=== PATIENT | male | born 1985 | race American Indian/Alaskan Native ===

== ENCOUNTER 2018-09-05 15:45 | Emergency (ER) | payer OTHER ==
--- NOTE | 2018-09-05 20:13 | Emergency Department Report ---
- General Chief complaint: Abdominal Pain Stated complaint: RT LEG PAIN Time Seen by Provider: 09/05/18 19:31 Source: patient Mode of arrival: Ambulatory Limitations: No Limitations - History of Present Illness Initial comments: abscess thigh x 3 days pt denies fever or chills no n/v has hx of abscess thigh 1 yr ago. there are no relieving or exacerbating factors. MD complaint: abscess/boil (1x1 left inner thigh) Onset/Timin -: days(s) Tetanus Up to Date: yes Location: LLE Severity: moderate Severity scale (0 -10): 4 Quality: burning, other (itching ) Consistency: constant Improves with: none Worsens with: none Context: none Associated symptoms: itching Treatments Prior to Arrival: none - Related Data Previous Rx's Medication Instructions Recorded Last Taken Type Cephalexin [Keflex] 500 mg PO TID #30 capsule 09/05/18 Unknown Rx Tramadol HCl [Ultram] 50 mg PO Q6H PRN #12 tablet 09/05/18 Unknown Rx Allergies Allergy/AdvReac Type Severity Reaction Status Date / Time Sulfa (Sulfonamide Allergy Unknown Verified 09/05/18 16:11 Antibiotics) Abscess Boil HPI - HPI Chief Complaint: Abdominal Pain Stated Complaint: RT LEG PAIN Time Seen by Provider: 09/05/18 19:31 Home Medications: Previous Rx's Medication Instructions Recorded Last Taken Type Cephalexin [Keflex] 500 mg PO TID #30 capsule 09/05/18 Unknown Rx Tramadol HCl [Ultram] 50 mg PO Q6H PRN #12 tablet 09/05/18 Unknown Rx Allergies/Adverse Reactions: Allergies Allergy/AdvReac Type Severity Reaction Status Date / Time Sulfa (Sulfonamide Allergy Unknown Verified 09/05/18 16:11 Antibiotics) ED Review of Systems ROS: Stated complaint: RT LEG PAIN Other details as noted in HPI Constitutional: denies: chills, fever Eyes: denies: eye pain, eye discharge, vision change ENT: denies: ear pain, throat pain Respiratory: denies: cough, shortness of breath, wheezing Cardiovascular: as per HPI Endocrine: no symptoms reported Gastrointestinal: denies: abdominal pain, nausea, diarrhea Genitourinary: denies: urgency, dysuria Musculoskeletal: other (abscess LLE ) Skin: lesions Neurological: denies: headache, weakness, paresthesias Psychiatric: denies: anxiety, depression Hematological/Lymphatic: denies: easy bleeding, easy bruising ED Past Medical Hx - Past Medical History Previous Medical History?: Yes Hx Diabetes: Yes - Surgical History Past Surgical History?: No - Social History Smoking Status: Never Smoker Substance Use Type: None - Medications Home Medications: Home Medications Medication Instructions Recorded Confirmed Last Taken Type Cephalexin [Keflex] 500 mg PO TID #30 capsule 09/05/18 Unknown Rx Tramadol HCl [Ultram] 50 mg PO Q6H PRN #12 tablet 09/05/18 Unknown Rx ED Physical Exam - General Limitations: No Limitations General appearance: alert, in no apparent distress - Head Head exam: Present: atraumatic, normocephalic - Eye Eye exam: Present: normal appearance - ENT ENT exam: Present: mucous membranes moist - Neck Neck exam: Present: normal inspection - Respiratory Respiratory exam: Present: normal lung sounds bilaterally. Absent: respiratory distress - Cardiovascular Cardiovascular Exam: Present: regular rate, normal rhythm. Absent: systolic murmur, diastolic murmur, rubs, gallop - GI/Abdominal GI/Abdominal exam: Present: soft, normal bowel sounds - Rectal Rectal exam: Present: deferred - Extremities Exam Extremities exam: Present: full ROM, tenderness (LLE thigh abscess ), normal capillary refill. Absent: pedal edema, joint swelling, calf tenderness - Back Exam Back exam: Present: normal inspection, full ROM. Absent: tenderness, CVA tenderness (R), CVA tenderness (L) - Neurological Exam Neurological exam: Present: alert, oriented X3, CN II-XII intact, normal gait, reflexes normal - Psychiatric Psychiatric exam: Present: normal affect, normal mood - Skin Skin exam: Present: warm, dry, intact, normal color, erythema (abscess left inner thigh ). Absent: rash ED Course Vital Signs 09/05/18 16:08 Temperature 98.3 F Pulse Rate 82 Respiratory 16 Rate Blood Pressure 171/101 O2 Sat by Pulse 100 Oximetry - I & D Left Thigh Type of Procedure: Simple Site: left inner thigh abscess Blade Size: 11 I & D Procedure: betadine prep, sterile dressing applied Progress: left inner thigh abcess 1x1 mild erythema fluctuant, painful to touch, wound cleaned with betadine solution, anesthesia with 1% lidocaine plain, incision with 11 blade x 1 moderate purulent drainage, wound irrigated wtih 30 sterile saline, all bleeding controlled sterile dressing applied pt tolerated procedure with minimal distress, pt given wound care instructions will follow up with pcp in 2 xdays for wound dc to home wtih rx for keflex and ultram. Critical care attestation.: If time is entered above; I have spent that time in minutes in the direct care of this critically ill patient, excluding procedure time. ED Disposition Clinical Impression: Abscess Disposition: DC-01 TO HOME OR SELFCARE Is pt being admited?: No Does the pt Need Aspirin: No Condition: Stable Instructions: Abscess (ED) Prescriptions: Cephalexin [Keflex] 500 mg PO TID #30 capsule Tramadol HCl [Ultram] 50 mg PO Q6H PRN #12 tablet PRN Reason: pain Referrals: MARA MOHAMUD MD [Primary Care Provider] - 3-5 Days Forms: Work/School Release Form(ED) Time of Disposition: 20:13
[2018-09-05 20:22] VITALS: BP 171/94
--- NOTE | 2019-01-06 11:29 | Event Note ---
Date: 01/06/19 Noted positive blood culture with MSSA during Antimicrobial Stewardship Blood Culture review. Patient discharged home. I called and spoke to the patient. He is currently feeling well. MSSA bacteremia is almost never considered a contaminant and if untreated, can be associated with a high mortality given the highly invasive nature of the infection. Hence, recommended patient return to the hospital for evaluation. He is agreeable. Recs: - upon arrival to the ER, please obtain blood cultures x 2, TTE and then start p atient on IV Cefazolin. Recommend ID consult Please call me with questions. Klarissa Blancas MD Infectious Disease Assistant [facility] C: [phone]
== END 2018-09-05 20:21 | disposition home or self-care (01) ==
LOC: ED 15:45
DX: L02.416 Cutaneous abscess of left lower limb (principal); E11.9 Type 2 diabetes mellitus without complications; Z88.2 Allergy status to sulfonamides

== ENCOUNTER 2018-12-28 22:08 | Inpatient (IN) | payer OTHER ==
--- NOTE | 2018-12-28 22:33 | Emergency Department Report ---
Blank Doc - Documentation Documentation: This is a 33-year-old male that presents with dizziness and generalized weakne ss. Denies any chest pain. This initial assessment/diagnostic orders/clinical plan/treatment(s) is/are subject to change based on patient's health status, clinical progression and re- assessment by fellow clinical providers in the ED. Further treatment and workup at subsequent clinical providers discretion. Patient/guardians urged not to elope from the ED as their condition may be serious if not clinically assessed and managed. Initial orders include: 1- Patient sent to [facility] for further evaluation and treatment 2- labs
[2018-12-28 23:03] LABS: Basophils % (Auto) 0.1 % (0.0-1.8); Eosinophils % (Auto) 0.2 % (0.0-4.3); Hematocrit 31.7 % (35.5-45.6); Hemoglobin 10.5 gm/dl (11.8-15.2); Lymphocytes # (Auto) 0.8 K/mm3 (1.2-5.4); Lymphocytes % (Auto) 6.6 % (13.4-35.0); Mean Corpuscular HGB Conc 33 % (32-34); Mean Corpuscular Volume 84 fl (84-94); Monocytes # (Auto) 0.7 K/mm3 (0.0-0.8); Monocytes % (Auto) 5.7 % (0.0-7.3); Platelet Count 395 K/mm3 (140-440); Red Blood Count 3.77 M/mm3 (3.65-5.03); Red Cell Distribution Width 13.2 % (13.2-15.2)
[2018-12-28 23:06] LABS: Calcium 8.3 mg/dL (8.4-10.2)
[2018-12-29] MEDS ORDERED: ZOFRAN IV ONE (00:22)
[2018-12-29] MEDS ORDERED: NACL 0.9% 1000 ML 1,000 ML IV ONE ×2 (00:22→02:02)
--- NOTE | 2018-12-29 00:43 | Emergency Department Report ---
ED General Adult HPI - General Chief complaint: Dyspnea/Respdistress Stated complaint: SOB DIZZINESS WEAKNESS NECKPAIN Time Seen by Provider: 12/28/18 22:32 Source: patient, family Mode of arrival: Wheelchair Limitations: No Limitations - History of Present Illness Initial comments: This is a 33-year-old male with hx of IDDM , who presents with dizziness and generalized weakness. x 1 week Denies any chest pain. pt states adherence to medications however does not have a doctor. Onset/Timin -: week(s) Location: abdomen Radiation: back Severity scale (0 -10): 4 Quality: aching Consistency: constant Improves with: none Worsens with: none Associated Symptoms: malaise, shortness of breath, weakness Treatments Prior to Arrival: none - Related Data Previous Rx's Medication Instructions Recorded Last Taken Type Cephalexin [Keflex] 500 mg PO TID #30 capsule 09/05/18 Unknown Rx Tramadol HCl [Ultram] 50 mg PO Q6H PRN #12 tablet 09/05/18 Unknown Rx Allergies Allergy/AdvReac Type Severity Reaction Status Date / Time Sulfa (Sulfonamide Allergy Unknown Verified 09/05/18 16:11 Antibiotics) ED Review of Systems ROS: Stated complaint: SOB DIZZINESS WEAKNESS NECKPAIN Other details as noted in HPI Constitutional: malaise Eyes: denies: eye pain, eye discharge, vision change ENT: denies: ear pain, throat pain Respiratory: shortness of breath Cardiovascular: denies: chest pain, palpitations Endocrine: no symptoms reported Gastrointestinal: abdominal pain. denies: nausea, vomiting, diarrhea, constipation, melena Genitourinary: denies: urgency, dysuria, frequency, hematuria, discharge Musculoskeletal: back pain. denies: joint swelling, arthralgia Skin: denies: rash, lesions Neurological: weakness. denies: headache, paresthesias, vertigo Psychiatric: denies: anxiety, depression Hematological/Lymphatic: denies: easy bleeding, easy bruising ED Past Medical Hx - Past Medical History Hx Diabetes: Yes - Social History Smoking Status: Never Smoker Substance Use Type: None - Medications Home Medications: Home Medications Medication Instructions Recorded Confirmed Last Taken Type Cephalexin [Keflex] 500 mg PO TID #30 capsule 09/05/18 Unknown Rx Tramadol HCl [Ultram] 50 mg PO Q6H PRN #12 tablet 09/05/18 Unknown Rx ED Physical Exam - General Limitations: No Limitations General appearance: alert, in no apparent distress - Head Head exam: Present: atraumatic, normocephalic - Eye Eye exam: Present: normal appearance, PERRL, EOMI. Absent: conjunctival injection, nystagmus Pupils: Present: normal accommodation - ENT ENT exam: Present: mucous membranes moist - Neck Neck exam: Present: normal inspection, full ROM. Absent: lymphadenopathy - Respiratory Respiratory exam: Present: normal lung sounds bilaterally. Absent: respiratory distress, wheezes, stridor, chest wall tenderness - Cardiovascular Cardiovascular Exam: Present: regular rate, normal rhythm, normal heart sounds. Absent: systolic murmur, diastolic murmur, rubs, gallop - GI/Abdominal GI/Abdominal exam: Present: soft, normal bowel sounds, other (bilat cva ten dereness ). Absent: distended, tenderness, guarding, rebound, rigid, mass, hernia - Rectal Rectal exam: Present: deferred - Extremities Exam Extremities exam: Present: normal inspection, full ROM, normal capillary refill. Absent: tenderness, pedal edema, joint swelling, calf tenderness - Back Exam Back exam: Present: normal inspection, full ROM, tenderness, CVA tenderness (R), CVA tenderness (L). Absent: muscle spasm, paraspinal tenderness, rash noted - Neurological Exam Neurological exam: Present: alert, oriented X3, CN II-XII intact, normal gait, reflexes normal - Psychiatric Psychiatric exam: Present: normal affect, normal mood - Skin Skin exam: Present: warm, dry, intact, normal color. Absent: rash ED Course Vital Signs 12/28/18 22:24 Temperature 98.7 F Pulse Rate 99 H Respiratory 20 Rate Blood Pressure 123/70 O2 Sat by Pulse 100 Oximetry ED Medical Decision Making - Lab Data Result diagrams: 12/28/18 22:41 12/28/18 22:41 - Radiology Data Radiology results: report reviewed, image reviewed PROCEDURE: CT ABDOMEN PELVIS WO CON TECHNIQUE: Computerized axial tomography of the abdomen and pelvis was performed without intravenous contrast. This study is performed without intravascular contrast material and its sensitivity for abdominal and pelvic pathology, including neoplasms, inflammation, abscess, free fluid, thrombosis, arterial dissection and infarction, is reduced compared with a contrast enhanced study. CT DOSE LENGTH PRODUCT: mGycm HISTORY: abdominal pain COMPARISONS: None . FINDINGS: Visualized lower thorax: No significant abnormality. Liver: Normal size and attenuation. Spleen: Normal size and attenuation. Gallbladder and biliary system: Normal. Pancreas: Normal. Adrenals: Normal. Kidneys: There are no kidney stones or ureteral stones. There is no hydronephrosis.. GI tract: There is no bowel obstruction, colitis or enteritis. The appendix is normal. . Lymph nodes and mesentery: Normal. Vasculature: Normal.. Bladder: Normal. Reproductive organs: Normal. Peritoneum: There is no ascites or free air, abscess or adenopathy.. Musculoskeletal structures: No significant abnormality. There are enlarged bilateral inguinal lymph nodes greater on the left. IMPRESSION: There is no acute intra-abdominal abnormality. . This document is electronically signed by Romina Noguera MD., Dec 29 2018 01:37:26 AM ET Transcribed By: CO Dictated By: ROMINA NOGUERA MD Electronically Authenticated By: ROMINA NOGUERA MD Signed Date/Time: 12/29/18 0139 DD/ TD/TT: 12/29/1821 Ordering Physician: ANA LILIA BURTON NP Date of Service: 12/29/18 Procedure(s): XR chest routine 2V Accession Number(s): [id number] cc: ANA LILIA BURTON NP Fluoro Time In Minutes: PROCEDURE: XR CHEST ROUTINE 2V TECHNIQUE: PA and lateral chest radiographs were obtained. HISTORY: sob COMPARISONS: None. FINDINGS: Heart: Normal. Mediastinum/Vessels: Normal. Lungs/Pleural space: Normal. Bony thorax: No acute osseous abnormality. IMPRESSION: Normal examination. This document is electronically signed by Romina Noguera MD., Dec 29 2018 01:21:05 AM ET Transcribed By: CO Dictated By: ROMINA NOGUERA MD Electronically Authenticated By: ROMINA NOGUERA MD Signed Date/Time: 12/29/18 0123 DD/ TD/TT: 12/29/18 0055 a young 30 mg - Medical Decision Making cxr is normal no infiltrate no opacities, ct: normal ct scan, no renal stones no hydronephrosis, plan: consult ed attending, recommendation admit dx: GORAN, : 0155: consult Nephrology: Dr. Weatherspoonconsult recomendation: hydrate , admit to hospitalist , consult nerphrology will see pt on rounds, 0200: hospitalist consult and patient care hand off for DX: GORAN : discussed treatment plan with patient , patient verbalized agreement and understanding of same. pt for admission at this time for dx: GORAN , Critical care attestation.: If time is entered above; I have spent that time in minutes in the direct care of this critically ill patient, excluding procedure time. ED Disposition Clinical Impression: GORAN (acute kidney injury) Disposition: DC-09 OP ADMIT IP TO THIS HOSP Is pt being admited?: Yes Does the pt Need Aspirin: No Condition: Stable Time of Disposition: 02:11
--- NOTE | 2018-12-29 01:23 | XRay Report ---
PROCEDURE: XR CHEST ROUTINE 2V TECHNIQUE: PA and lateral chest radiographs were obtained. HISTORY: sob COMPARISONS: None. FINDINGS: Heart: Normal. Mediastinum/Vessels: Normal. Lungs/Pleural space: Normal. Bony thorax: No acute osseous abnormality. IMPRESSION: Normal examination. This document is electronically signed by Frederick Still MD., Dec 29 2018 01:21:05 AM ET
[2018-12-29] MEDS ORDERED: D50W (25GM) Syringe IV ONE (01:38)
--- NOTE | 2018-12-29 01:39 | Cat Scan Report ---
PROCEDURE: CT ABDOMEN PELVIS WO CON TECHNIQUE: Computerized axial tomography of the abdomen and pelvis was performed without intravenous contrast. This study is performed without intravascular contrast material and its sensitivity for ab dominal and pelvic pathology, including neoplasms, inflammation, abscess, free fluid, thrombosis, art erial dissection and infarction, is reduced compared with a contrast enhanced study. CT DOSE LENGTH PRODUCT: mGycm HISTORY: abdominal pain COMPARISONS: None . FINDINGS: Visualized lower thorax: No significant abnormality. Liver: Normal size and attenuation. Spleen: Normal size and attenuation. Gallbladder and biliary system: Normal. Pancreas: Normal. Adrenals: Normal. Kidneys: There are no kidney stones or ureteral stones. There is no hydronephrosis.. GI tract: There is no bowel obstruction, colitis or enteritis. The appendix is normal. . Lymph nodes and mesentery: Normal. Vasculature: Normal.. Bladder: Normal. Reproductive organs: Normal. Peritoneum: There is no ascites or free air, abscess or adenopathy.. Musculoskeletal structures: No significant abnormality. There are enlarged bilateral inguinal lymph nodes greater on the left. IMPRESSION: There is no acute intra-abdominal abnormality. . This document is electronically signed by Frederick Still MD., Dec 29 2018 01:37:26 AM ET
[2018-12-29 01:49] LABS: Alanine Aminotransferase 19 units/L (7-56); Albumin 2.8 g/dL (3.9-5); BUN/Creatinine Ratio 10; Blood Urea Nitrogen 39 mg/dL (9-20); Hemolysis Index 62
[2018-12-29] MEDS ORDERED: PERCOCET 5/325 PO PRN (02:06)
[2018-12-29] MEDS ORDERED: ZOFRAN IV PRN (02:06)
[2018-12-29] MEDS ORDERED: TYLENOL PO PRN (02:06)
[2018-12-29] MEDS ORDERED: AMBIEN PO PRN (02:06)
[2018-12-29] MEDS ORDERED: SODIUM CHLORIDE FLUSH SYRINGE 10 ML IV PRN (02:06)
[2018-12-29] MEDS ORDERED: D50W (25GM) Syringe IV PRN (02:23)
[2018-12-29 02:25] LABS: Calcium 8.3 mg/dL (8.4-10.2)
--- NOTE | 2018-12-29 02:29 | History and Physical Report ---
History of Present Illness Date of examination: 12/29/18 Chief complaint: Dizziness History of present illness: Patient is a 33-year-old -[place] male with history of diabetes mellitus type 1 who presented to the ED on account of a day history of dizziness. He has associated arm weakness, bilateral leg swelling and easy fatigability. He denies headaches, nausea, vomiting, syncope or loss of consciousness. No chest pain, shortness of breath, palpitation, cough, fever, chills, abdominal pain, constipation or diarrhea. Patient's last clinic visit was in May 2018. He reports that he has been having low blood glucose. Past History Past Medical History: diabetes Past Surgical History: No surgical history Social history: smoking (patient has 3 years history of cigarette smoking. He currently smokes few sticks per day. He denies alcohol or illicit drug use) Family history: diabetes (great aunt. No known family history of hypertension, heart or kidney disease) Medications and Allergies Allergies Allergy/AdvReac Type Severity Reaction Status Date / Time Sulfa (Sulfonamide Allergy Unknown Verified 09/05/18 16:11 Antibiotics) Home Medications Medication Instructions Recorded Confirmed Last Taken Type Cephalexin [Keflex] 500 mg PO TID #30 capsule 09/05/18 Unknown Rx Tramadol HCl [Ultram] 50 mg PO Q6H PRN #12 tablet 09/05/18 Unknown Rx Active Meds: Active Medications Acetaminophen (Tylenol) 650 mg PO Q4H PRN PRN Reason: Pain MILD(1-3)/Fever >100.5/[place]CI[place]A Sodium Chloride (Nacl 0.9% 1000 Ml) 1,000 mls @ 999 mls/hr IV BOLUS ONE Stop: 12/29/18 03:02 Last Admin: 12/29/18 02:22 Dose: 999 mls/hr Documented by: Sodium Chloride (Nacl 0.9% 1000 Ml) 1,000 mls @ 150 mls/hr IV DIRECT KAI Ondansetron HCl (Zofran) 4 mg IV Q8H PRN PRN Reason: Nausea And Vomiting Oxycodone/Acetaminophen (Percocet 5/325) 1 tab PO Q6H PRN PRN Reason: Pain, Moderate (4-6) Sodium Chloride (Sodium Chloride Flush Syringe 10 Ml) 10 ml IV BID KAI Sodium Chloride (Sodium Chloride Flush Syringe 10 Ml) 10 ml IV PRN PRN PRN Reason: LINE FLUSH Zolpidem Tartrate (Ambien) 5 mg PO QHS PRN PRN Reason: Insomnia Review of Systems All systems: negative (except as documented in the HPI, 14 point system reviewed were negative) Exam - Constitutional Vitals: Temp Pulse Resp BP Pulse Ox 98.7 F 99 H 20 123/70 100 12/28/18 22:24 12/28/18 22:24 12/28/18 22:24 12/28/18 22:24 12/28/18 22:24 General appearance: Present: no acute distress - EENT Eyes: Present: PERRL, EOM intact ENT: hearing intact, clear oral mucosa - Neck Neck: Present: supple, normal ROM - Respiratory Respiratory effort: normal Respiratory: bilateral: CTA - Cardiovascular Rhythm: regular Heart Sounds: Present: S1 & S2. Absent: rub, click - Extremities Extremities: pulses symmetrical Extremity abnormal: edema (in bilateral lower extremities) - Abdominal General gastrointestinal: Present: soft, non-tender, non-distended, normal bowel sounds Male genitourinary: Present: deferred - Integumentary Integumentary: Present: clear, warm, dry - Musculoskeletal Musculoskeletal: gait normal, strength equal bilaterally - Psychiatric Psychiatric: appropriate mood/affect, intact judgment & insight - Neurologic Neurologic: CNII-XII intact, moves all extremities Results - Labs CBC & Chem 7: 12/28/18 22:41 12/29/18 00:55 Labs: Laboratory Last Values WBC 12.2 K/mm3 (4.5-11.0) H 12/28/18 22:41 RBC 3.77 M/mm3 (3.65-5.03) 12/28/18 22:41 Hgb 10.5 gm/dl (11.8-15.2) L 12/28/18 22:41 Hct 31.7 % (35.5-45.6) L 12/28/18 22:41 MCV 84 fl (84-94) 12/28/18 22:41 MCH 28 pg (28-32) 12/28/18 22:41 MCHC 33 % (32-34) 12/28/18 22:41 RDW 13.2 % (13.2-15.2) 12/28/18 22:41 Plt Count 395 K/mm3 (140-440) 12/28/18 22:41 Lymph % (Auto) 6.6 % (13.4-35.0) L 12/28/18 22:41 Borden % (Auto) 5.7 % (0.0-7.3) 12/28/18 22:41 Eos % (Auto) 0.2 % (0.0-4.3) 12/28/18 22:41 Baso % (Auto) 0.1 % (0.0-1.8) 12/28/18 22:41 Lymph # 0.8 K/mm3 (1.2-5.4) L 12/28/18 22:41 Borden # 0.7 K/mm3 (0.0-0.8) 12/28/18 22:41 Eos # 0.0 K/mm3 (0.0-0.4) 12/28/18 22:41 Baso # 0.0 K/mm3 (0.0-0.1) 12/28/18 22:41 Seg Neutrophils % 87.4 % (40.0-70.0) H 12/28/18 22:41 Seg Neutrophils # 10.7 K/mm3 (1.8-7.7) H 12/28/18 22:41 Sodium 136 mmol/L (137-145) L 12/29/18 00:55 Potassium 4.1 mmol/L (3.6-5.0) 12/29/18 00:55 Chloride 100.8 mmol/L (98-107) 12/29/18 00:55 Carbon Dioxide 24 mmol/L (22-30) 12/29/18 00:55 15 mmol/L 12/29/18 00:55 BUN 39 mg/dL (9-20) H 12/29/18 00:55 3.8 mg/dL (0.8-1.5) H 12/29/18 00:55 Estimated GFR 22 ml/min 12/29/18 00:55 10 % 12/29/18 00:55 Glucose 56 mg/dL (75-100) L 12/29/18 00:55 Lactic Acid 0.70 mmol/L (0.7-2.0) 12/29/18 00:31 Calcium 9.0 mg/dL (8.4-10.2) 12/29/18 00:55 < 0.20 mg/dL (0.1-1.2) 12/29/18 00:55 ALT 19 units/L (7-56) 12/29/18 00:55 97 units/L (35-129) 12/29/18 00:55 2.8 g/dL (3.9-5) L 12/29/18 00:55 Assessment and Plan Assessment and plan: Acute renal failure -Probably diabetic nephropathy -On IV fluid, will monitor creatinine level -CT abdomen/pelvis negative for acute findings -Nephrology consulted in the ED DM1 with hypoglycemia -On hypoglycemic protocol -We will check hemoglobin A1c level Leukocytosis -Probably reactive -Checks x-ray negative. Urinalysis pending DVT prophylaxis with SCD Disposition: For discharge when medically stable Time spent: 38 minutes
[2018-12-29 07:51] LABS: Bacteria,Urine 3+ /HPF (Negative); Bilirubin,Urine NEG (Negative); Blood,Urine SM (Negative); Color,Urine Yellow (Yellow); Granular Casts,Urine 2 /LPF; Hyaline Casts,Urine 2 /LPF; Mucus,Urine 2+ /HPF; Urobilinogen,Urine < 2.0 mg/dL (<2.0)
[2018-12-29 07:55] LABS: Protein,Urine >500 mg/dL (Negative)
[2018-12-29] MEDS: HumaLOG SUB-Q SCH ×4 (08:00→22:00)
[2018-12-29] MEDS: SODIUM CHLORIDE FLUSH SYRINGE 10 ML IV SCH ×2 (10:13→23:53)
--- NOTE | 2018-12-29 13:28 | Consultation ---
History of Present Illness - Reason for Consult Consult date: 12/29/18 acute renal failure - History of Present Illness This is a 33 y/o M with PMH of DM Type 1 on insulin who presented to [facility] with c/o dizziness, fatigue, and bilateral arm weakness. Pt states that he fell asleep in his car for about 2 hrs, states he didn't have car running and car was hot. Pt also states he didn't drink much yesterday except for in the morning. On admission, labs showed abnormal renal function. Pt reports taking Advil twice a day for about 1.5 months for neck pain back in Jun 2018 and only takes it occa sionally now. We were consulted to evaluate this pt who has GORAN. . Past History Past Medical History: diabetes Past Surgical History: No surgical history Social history: smoking (patient has 3 years history of cigarette smoking. He currently smokes few sticks per day. He denies alcohol or illicit drug use) Family history: diabetes (great aunt. No known family history of hypertension, heart or kidney disease) Medications and Allergies Allergies Allergy/AdvReac Type Severity Reaction Status Date / Time Sulfa (Sulfonamide Allergy Unknown Verified 09/05/18 16:11 Antibiotics) Home Medications Medication Instructions Recorded Confirmed Last Taken Type Cephalexin [Keflex] 500 mg PO TID #30 capsule 09/05/18 Unknown Rx Tramadol HCl [Ultram] 50 mg PO Q6H PRN #12 tablet 09/05/18 Unknown Rx Active Meds: Active Medications Acetaminophen (Tylenol) 650 mg PO Q4H PRN PRN Reason: Pain MILD(1-3)/Fever >100.5/BURCIAGA Dextrose (D50w (25gm) Syringe) 50 ml IV PRN PRN PRN Reason: Hypoglycemia Sodium Chloride (Nacl 0.9% 1000 Ml) 1,000 mls @ 150 mls/hr IV DIRECT KAI Insulin Human Lispro (Humalog) 0 unit SUB-Q ACHS KAI; Protocol Last Admin: 12/29/18 13:05 Dose: 4 unit Documented by: Ondansetron HCl (Zofran) 4 mg IV Q8H PRN PRN Reason: Nausea And Vomiting Oxycodone/Acetaminophen (Percocet 5/325) 1 tab PO Q6H PRN PRN Reason: Pain, Moderate (4-6) Sodium Chloride (Sodium Chloride Flush Syringe 10 Ml) 10 ml IV BID [facility] Last Admin: 12/29/18 10:13 Dose: Not Given Documented by: Sodium Chloride (Sodium Chloride Flush Syringe 10 Ml) 10 ml IV PRN PRN PRN Reason: LINE FLUSH Zolpidem Tartrate (Ambien) 5 mg PO QHS PRN PRN Reason: Insomnia Review of Systems Constitutional: fatigue, weakness Cardiovascular: lightheadedness, no chest pain, no shortness of breath, no dyspnea on exertion Respiratory: no shortness of breath, no dyspnea on exertion Gastrointestinal: no abdominal pain, no nausea, no vomiting, no diarrhea, no con stipation, no hematemesis Genitourinary Male: no dysuria, no hematuria Musculoskeletal: other (bilateral arm weakness) Integumentary: no sores, no wounds Neurological: weakness Endocrine: fatigue Exam - Vital Signs Vital signs: Vital Signs Temp Pulse Resp BP Pulse Ox 98.7 F 99 H 20 123/70 100 12/28/18 22:24 12/28/18 22:24 12/28/18 22:24 12/28/18 22:24 12/28/18 22:24 - General Appearance General appearance: well-developed EENT: ATNC Neck: Present: neck supple Respiratory: Clear to Ascultation Heart: regular, S1S2 Gastrointestinal: Present: normoactive bowel sounds. Absent: tenderness Integumentary: warm and dry Neurologic: alert and oriented x3 Musculoskeletal: Present: other (no edema to BLE) Psychiatric: mood/affect appropriate, cooperative Results - Lab Results 12/28/18 22:41 12/29/18 01:50 Most recent lab results Calcium 8.3 mg/dL (8.4-10.2) L 12/29/18 01:50 Assessment and Plan Acute Kidney Injury possibly prerenal, questionable AIN from NSAIDs, possible underlying CKD, no obstruction: - Renal function reviewed, SCr level was 3.8 today, yesterday's SCr level was 4.1 - Possibly underlying CKD due to Diabetic Nephropathy - Obtain urine lytes/protein - Check urine eosinophils - On 0.9% NS infusion at 150 ml/hr - CT ABD w/o contrast showed no hydronephrosis or stones - Avoid NSAIDs - Renally dose meds - Strict intake and output - Padilla Catheter: No - Renal plan d/w Dr Brad Diabetes Mellitus Type 1 on insulin: - As per primary team Hyponatremia: - Serum sodium level was 133 today - On 0.9% NS infusion at 150 ml/hr - Monitor closely
[2018-12-29] MEDS: NACL 0.9% 1000 ML 1,000 ML IV SCH ×2 (16:46→23:51)
[2018-12-30] MEDS: NACL 0.9% 1000 ML 1,000 ML IV SCH ×2 (06:07→14:28)
[2018-12-30 07:02] LABS: Basophils % (Auto) 0.3 % (0.0-1.8); Eosinophils # (Auto) 0.1 K/mm3 (0.0-0.4); Eosinophils % (Auto) 1.3 % (0.0-4.3); Hematocrit 29.4 % (35.5-45.6); Hemoglobin 9.6 gm/dl (11.8-15.2); Lymphocytes # (Auto) 1.2 K/mm3 (1.2-5.4); Lymphocytes % (Auto) 21.6 % (13.4-35.0); Mean Corpuscular HGB Conc 33 % (32-34); Mean Corpuscular Volume 86 fl (84-94); Monocytes # (Auto) 0.6 K/mm3 (0.0-0.8); Monocytes % (Auto) 11.2 % (0.0-7.3); Platelet Count 338 K/mm3 (140-440); Red Blood Count 3.43 M/mm3 (3.65-5.03); Red Cell Distribution Width 13.3 % (13.2-15.2)
[2018-12-30] MEDS: HumaLOG SUB-Q SCH ×3 (10:22→17:49)
[2018-12-30] MEDS: SODIUM CHLORIDE FLUSH SYRINGE 10 ML IV SCH (11:32)
--- NOTE | 2018-12-30 11:55 | Progress Note ---
Assessment and Plan Acute Kidney Injury possibly prerenal, questionable AIN from NSAIDs, possible underlying CKD, no obstruction: - Cr cont to Improve - will decrease NS to 100 cc/h - Possibly underlying CKD due to Diabetic Nephropathy - signifacnt proteinuria, likely secondary to DM nephropathy, will check secondary GN work up as an outpatient, kidney function cont to improve for now - CT ABD w/o contrast showed no hydronephrosis or stones - Avoid NSAIDs - Renally dose meds - Strict intake and output - Padilla Catheter: No Diabetes Mellitus Type 1 on insulin: - As per primary team Hyponatremia: - resolved Subjective Date of service: 12/30/18 Principal diagnosis: acute renal failure Interval history: feels better, mild weakness Objective - Vital Signs Vital signs: Vital Signs - 12hr 12/30/18 05:52 Temperature 97.0 F L Pulse Rate 81 Respiratory 18 Rate Blood Pressure 149/89 O2 Sat by Pulse 100 Oximetry - General Appearance General appearance: well-developed, well-nourished, appears stated age EENT: ATNC, PERRL, mucous membranes moist Neck: no JVD, no thyromegaly Respiratory: Present: Clear to Ascultation. Absent: Rales, Ronchi Cardiology: regular, S1S2 Gastrointestinal: normoactive bowel sounds, no tenderness, no distended Integumentary: no rash, warm and dry Neurologic: no focal deficit, no asterixis, alert and oriented x3 Musculoskeletal: other (no edema in BLE) Psychiatric: mood/affect appropriate, cooperative - Lab 12/30/18 06:35 12/30/18 06:35 Most recent lab results Calcium 8.0 mg/dL (8.4-10.2) L 12/30/18 06:35 Medications & Allergies - Medications Allergies/Adverse Reactions: Allergies Sulfa (Sulfonamide Antibiotics) Allergy (Verified 09/05/18 16:11) Unknown Home Medications: Home Medications Medication Instructions Recorded Confirmed Last Taken Type Cephalexin [Keflex] 500 mg PO TID #30 capsule 09/05/18 Unknown Rx Tramadol HCl [Ultram] 50 mg PO Q6H PRN #12 tablet 09/05/18 Unknown Rx Active Medications: Generic Name Dose Route Start Last Admin Trade Name Freq PRN Reason Stop Dose Admin Acetaminophen 650 mg 12/29/18 02:06 Tylenol PO Q4H PRN Pain MILD(1-3)/Fever >100.5/BURCIAGA Dextrose 50 ml 12/29/18 02:23 D50w (25gm) Syringe IV PRN PRN Hypoglycemia Sodium Chloride 1,000 mls @ 150 mls/hr 12/29/18 03:00 12/30/18 06:07 Nacl 0.9% 1000 Ml IV 150 mls/hr DIRECT KAI Administration Insulin Human Lispro 0 unit 12/29/18 07:30 12/30/18 10:22 Humalog SUB-Q Not Given ACHS KAI Protocol Ondansetron HCl 4 mg 12/29/18 02:06 Zofran IV Q8H PRN Nausea And Vomiting Oxycodone/Acetaminophen 1 tab 12/29/18 02:06 Percocet 5/325 PO Q6H PRN Pain, Moderate (4-6) Sodium Chloride 10 ml 12/29/18 10:00 12/30/18 11:32 Sodium Chloride Flush Syringe 10 Ml IV 10 ml BID KAI Administration Sodium Chloride 10 ml 12/29/18 02:06 Sodium Chloride Flush Syringe 10 Ml IV PRN PRN LINE FLUSH Zolpidem Tartrate 5 mg 12/29/18 02:06 Ambien PO QHS PRN Insomnia
--- NOTE | 2018-12-30 17:35 | Progress Note ---
Assessment and Plan Acute renal failure -Probably diabetic nephropathy -On IV fluid, will monitor creatinine level -CT abdomen/pelvis negative for acute findings -Nephrology consult appreciated IV fluids for now DM1 with hypoglycemia -On hypoglycemic protocol -We will check hemoglobin A1c level Leukocytosis -Probably reactive -Checks x-ray negative. Urinalysis pending DVT prophylaxis with SCD Disposition: For discharge when medically stable Subjective Date of service: 12/30/18 Principal diagnosis: acute renal failure Interval history: Symptomatically same Objective - Constitutional Vitals: Vital Signs - 12hr 12/30/18 12/30/18 05:52 12:27 Temperature 97.0 F L 98.2 F Pulse Rate 81 75 Respiratory 18 20 Rate Blood Pressure 149/89 157/99 O2 Sat by Pulse 100 100 Oximetry General appearance: Present: no acute distress, well-nourished - EENT Eyes: PERRL, EOM intact ENT: hearing intact, clear oral mucosa Ears: bilateral: normal - Neck Neck: supple, normal ROM - Respiratory Respiratory effort: normal Respiratory: bilateral: CTA - Breasts Breasts: normal - Cardiovascular Heart rate: 78 Rhythm: regular Heart Sounds: Present: S1 & S2. Absent: gallop, rub Extremities: pulses intact, No edema, normal color, Full ROM - Gastrointestinal General gastrointestinal: Present: soft, non-tender, non-distended, normal bowel sounds - Genitourinary Male genitourinary: normal - Integumentary Integumentary: clear, warm, dry - Musculoskeletal Musculoskeletal: 1, strength equal bilaterally - Neurologic Neurologic: moves all extremities - Psychiatric Psychiatric: memory intact, appropriate mood/affect, intact judgment & insight - Labs CBC & Chem 7: 12/30/18 06:35 12/31/18 10:01 Labs: Abnormal lab results 12/29/18 12/29/18 12/29/18 Range/Units 01:42 18:25 21:35 RBC (3.65-5.03) M/mm3 Hgb (11.8-15.2) gm/dl Hct (35.5-45.6) % [place] % (Auto) (0.0-7.3) % Chloride (98-107) mmol/L BUN (9-20) mg/dL Creatinine (0.8-1.5) mg/dL Glucose (75-100) mg/dL POC Glucose < 40 L 146 H 44 L (70-105) Calcium (8.4-10.2) mg/dL 12/30/18 12/30/18 12/30/18 Range/Units 06:35 06:35 07:47 RBC 3.43 L (3.65-5.03) M/mm3 Hgb 9.6 L (11.8-15.2) gm/dl Hct 29.4 L (35.5-45.6) % [place] % (Auto) 11.2 H (0.0-7.3) % Chloride 110.2 H (98-107) mmol/L BUN 28 H (9-20) mg/dL Creatinine 2.8 H (0.8-1.5) mg/dL Glucose 53 L (75-100) mg/dL POC Glucose 41 L (70-105) Calcium 8.0 L (8.4-10.2) mg/dL 12/30/18 12/30/18 Range/Units 12:34 17:03 RBC (3.65-5.03) M/mm3 Hgb (11.8-15.2) gm/dl Hct (35.5-45.6) % [place] % (Auto) (0.0-7.3) % Chloride (98-107) mmol/L BUN (9-20) mg/dL Creatinine (0.8-1.5) mg/dL Glucose (75-100) mg/dL POC Glucose 170 H 139 H (70-105) Calcium (8.4-10.2) mg/dL
[2018-12-31] MEDS: SODIUM CHLORIDE FLUSH SYRINGE 10 ML IV SCH ×3 (01:13→22:17)
[2018-12-31] MEDS: HumaLOG SUB-Q SCH ×5 (01:13→22:20)
[2018-12-31] MEDS: NACL 0.9% 1000 ML 1,000 ML IV SCH ×2 (08:48→22:28)
--- NOTE | 2018-12-31 09:20 | Progress Note ---
Assessment and Plan Acute Kidney Injury possibly prerenal, questionable AIN from NSAIDs, possible underlying CKD, no obstruction: - No new labs noted for today. Will order BMP now. Serum creatinine yesterday had trend down to 2.8 from prior reading of 3.8 - On IV hydration with NS @100 ml/hr. - Possibly underlying CKD due to Diabetic Nephropathy - Has signifacnt proteinuria, likely secondary to DM nephropathy, will check secondary GN work up as an outpatient, as renal function has shown improvement - CT ABD w/o contrast showed no hydronephrosis or stones -Monitor blodo pressures - Avoid NSAIDs - Renally dose medications - Strict intake and output - Padilla Catheter: No -Continue to monitor renal function Diabetes Mellitus Type 1: -Has Hypoglycemic episodes -Insulin held -As per primary team Hyponatremia: -Resolved Subjective Date of service: 12/31/18 Principal diagnosis: acute renal failure Interval history: Patient seen lying in bed. States he hopes he is going home today. No family at bedside. Objective - Vital Signs Vital signs: Vital Signs - 12hr 12/30/18 12/30/18 12/31/18 23:38 23:39 06:23 Temperature 98.1 F Pulse Rate 87 84 Respiratory 18 18 Rate Blood Pressure 129/85 151/95 O2 Sat by Pulse 100 100 Oximetry 12/31/18 06:25 Temperature 98.2 F Pulse Rate Respiratory Rate Blood Pressure O2 Sat by Pulse Oximetry - General Appearance General appearance: well-developed, appears stated age EENT: ATNC, PERRL, hearing intact, vision intact Neck: no JVD, supple Respiratory: Present: Decreased Breath Sounds Cardiology: regular, S1S2 Gastrointestinal: normoactive bowel sounds Integumentary: warm and dry Neurologic: alert and oriented x3 Musculoskeletal: other (No edema) Psychiatric: mood/affect appropriate - Lab 12/30/18 06:35 12/30/18 06:35 Most recent lab results Calcium 8.0 mg/dL (8.4-10.2) L 12/30/18 06:35 Medications & Allergies - Medications Allergies/Adverse Reactions: Allergies Sulfa (Sulfonamide Antibiotics) Allergy (Verified 09/05/18 16:11) Unknown Home Medications: Home Medications Medication Instructions Recorded Confirmed Last Taken Type Cephalexin [Keflex] 500 mg PO TID #30 capsule 09/05/18 12/30/18 Unknown Rx Tramadol HCl [Ultram] 50 mg PO Q6H PRN #12 tablet 09/05/18 12/30/18 Unknown Rx Active Medications: Generic Name Dose Route Start Last Admin Trade Name Madalyn PRN Reason Stop Dose Admin Acetaminophen 650 mg 12/29/18 02:06 Tylenol PO Q4H PRN Pain MILD(1-3)/Fever >100.5/BURCIAGA Dextrose 50 ml 12/29/18 02:23 D50w (25gm) Syringe IV PRN PRN Hypoglycemia Sodium Chloride 1,000 mls @ 100 mls/hr 12/29/18 03:00 12/31/18 08:48 Nacl 0.9% 1000 Ml IV 150 mls/hr DIRECT KAI Administration Insulin Human Lispro 0 unit 12/29/18 07:30 12/31/18 07:30 Humalog SUB-Q Not Given ACHS [facility] Protocol Ondansetron HCl 4 mg 12/29/18 02:06 Zofran IV Q8H PRN Nausea And Vomiting Oxycodone/Acetaminophen 1 tab 12/29/18 02:06 Percocet 5/325 PO Q6H PRN Pain, Moderate (4-6) Sodium Chloride 10 ml 12/29/18 10:00 12/31/18 01:13 Sodium Chloride Flush Syringe 10 Ml IV Not Given BID KAI Sodium Chloride 10 ml 12/29/18 02:06 Sodium Chloride Flush Syringe 10 Ml IV PRN PRN LINE FLUSH Zolpidem Tartrate 5 mg 12/29/18 02:06 Ambien PO QHS PRN Insomnia
[2018-12-31 11:02] LABS: Calcium 8.1 mg/dL (8.4-10.2)
[2018-12-31] MEDS: APRESOLINE PO SCH ×3 (12:48→22:18)
--- NOTE | 2018-12-31 15:16 | Progress Note ---
Assessment and Plan Acute renal failure -Probably diabetic nephropathy -On IV fluid, will monitor creatinine level -CT abdomen/pelvis negative for acute findings -Nephrology consult appreciated IV fluids for now Creatinine improved from 4.1-2.8 DM1 with hypoglycemia -On hypoglycemic protocol UTI On IV ceftriaxone Leukocytosis -Probably secondary to UTI -Checks x-ray negative. Urinalysis positive for 16 WBCs DVT prophylaxis with SCD Disposition: For discharge when medically stable Subjective Date of service: 12/31/18 Principal diagnosis: acute renal failure Interval history: Symptomatically better Objective - Constitutional Vitals: Vital Signs - 12hr 12/31/18 12/31/18 12/31/18 06:23 06:25 11:46 Temperature 98.2 F 98.3 F Pulse Rate 84 79 Respiratory 18 20 Rate Blood Pressure 151/95 176/101 O2 Sat by Pulse 100 99 Oximetry 12/31/18 12:48 Temperature Pulse Rate 79 Respiratory Rate Blood Pressure 170/100 O2 Sat by Pulse Oximetry General appearance: Present: no acute distress, well-nourished - EENT Eyes: PERRL, EOM intact ENT: hearing intact, clear oral mucosa Ears: bilateral: normal - Neck Neck: supple, normal ROM - Respiratory Respiratory effort: normal Respiratory: bilateral: CTA - Breasts Breasts: normal - Cardiovascular Heart rate: 78 Rhythm: regular Heart Sounds: Present: S1 & S2. Absent: gallop, rub Extremities: pulses intact, No edema, normal color, Full ROM - Gastrointestinal General gastrointestinal: Present: soft, non-tender, non-distended, normal bowel sounds - Genitourinary Male genitourinary: normal - Integumentary Integumentary: clear, warm, dry - Musculoskeletal Musculoskeletal: 1, strength equal bilaterally - Neurologic Neurologic: moves all extremities - Psychiatric Psychiatric: memory intact, appropriate mood/affect, intact judgment & insight - Labs CBC & Chem 7: 12/30/18 06:35 12/31/18 10:01 Labs: Abnormal lab results 12/30/18 12/30/18 12/30/18 Range/Units 12:34 17:03 21:18 Potassium (3.6-5.0) mmol/L Chloride (98-107) mmol/L BUN (9-20) mg/dL Creatinine (0.8-1.5) mg/dL Glucose (75-100) mg/dL POC Glucose 170 H 139 H 159 H (70-105) Calcium (8.4-10.2) mg/dL 12/31/18 12/31/18 12/31/18 Range/Units 08:14 10:01 11:51 Potassium 5.1 H (3.6-5.0) mmol/L Chloride 108.7 H (98-107) mmol/L BUN 24 H (9-20) mg/dL Creatinine 2.4 H (0.8-1.5) mg/dL Glucose 138 H (75-100) mg/dL POC Glucose 47 L 180 H (70-105) Calcium 8.1 L (8.4-10.2) mg/dL
[2018-12-31 17:17] LABS: Creatinine,Urine 52.9 mg/dL (0.1-20.0)
[2018-12-31 17:32] LABS: Protein/Creatinine Ratio,Urine 6.39
[2018-12-31] MEDS ORDERED: APRESOLINE IV PRN (17:45)
[2019-01-01] MEDS: APRESOLINE PO SCH ×2 (06:13→13:16)
[2019-01-01] MEDS: HumaLOG SUB-Q SCH ×2 (07:30→13:25)
--- NOTE | 2019-01-01 08:53 | Progress Note ---
Assessment and Plan Acute Kidney Injury possibly prerenal, questionable AIN from NSAIDs, possible underlying CKD, no obstruction: - Labs ordered for today 01/01/19 not collected as of yet. Serum creatinine yesterday had trend down to 2.4 from prior reading of 2.8, UOP 650 ml recorded - Renal function has been improving on IV hydration - On IV hydration with NS @100 ml/hr, currently not running as patient was walking in the hallway - Possibly underlying CKD due to Diabetic Nephropathy - Has signifacnt proteinuria, likely secondary to DM nephropathy, will check secondary GN work up as an outpatient, as renal function has shown improvement - CT ABD w/o contrast showed no hydronephrosis or stones - Monitor blood pressures - Avoid NSAID's - Renally dose medications - Strict intake and output - Padilla Catheter: No - Continue to monitor renal function - Patient can be discharged from renal standpoint, he will need to follow-up with Dr. Gutierrez in 7 days of discharge for continued monitoring of renal function and electrolytes at our [place] office location located at: [address] [place] [address]. Phone number- [phone]. Diabetes Mellitus Type 1: -S/P Hypoglycemic episodes -On Insulin -As per primary team Hyponatremia: -Resolved Subjective Date of service: 01/01/19 Principal diagnosis: acute renal failure Interval history: Patient seen walking the hallways with his girlfriend. Patient states he wants to go home. States he is tired of being here. Walked with patient back to his room to review renal plan of care. Objective - Vital Signs Vital signs: Vital Signs - 12hr 12/31/18 12/31/18 01/01/19 22:18 23:46 05:56 Temperature 98.5 F 98.0 F Pulse Rate 88 95 H 84 Respiratory 18 20 Rate Blood Pressure 137/87 132/77 152/87 O2 Sat by Pulse 97 98 Oximetry - General Appearance General appearance: well-developed, appears stated age, fatigue EENT: ATNC, PERRL, hearing intact, vision intact Neck: no JVD, supple Respiratory: Present: Clear to Ascultation Cardiology: regular, S1S2 Gastrointestinal: normoactive bowel sounds Integumentary: warm and dry Neurologic: alert and oriented x3 Musculoskeletal: other (No edema) - Lab 12/30/18 06:35 12/31/18 10:01 Most recent lab results Calcium 8.1 mg/dL (8.4-10.2) L 12/31/18 10:01 52.9 mg/dL (0.1-20.0) H 12/31/18 15:52 114 mmol/L 12/31/18 15:52 338 mg/dL (5-11.8) H 12/31/18 15:52 Medications & Allergies - Medications Allergies/Adverse Reactions: Allergies Sulfa (Sulfonamide Antibiotics) Allergy (Verified 09/05/18 16:11) Unknown Home Medications: Home Medications Medication Instructions Recorded Confirmed Last Taken Type Cephalexin [Keflex] 500 mg PO TID #30 capsule 09/05/18 12/30/18 Unknown Rx Tramadol HCl [Ultram] 50 mg PO Q6H PRN #12 tablet 09/05/18 12/30/18 Unknown Rx Lisinopril 40 12/31/18 Unknown History Active Medications: Generic Name Dose Route Start Last Admin Trade Name Freq PRN Reason Stop Dose Admin Acetaminophen 650 mg 12/29/18 02:06 01/01/19 06:14 Tylenol PO 650 mg Q4H PRN Administration Pain MILD(1-3)/Fever >100.5/BURCIAGA Dextrose 50 ml 12/29/18 02:23 D50w (25gm) Syringe IV PRN PRN Hypoglycemia Hydralazine HCl 50 mg 12/31/18 14:00 01/01/19 06:13 Apresoline PO 50 mg Q8HR KAI Administration Hydralazine HCl 10 mg 12/31/18 17:45 12/31/18 18:46 Apresoline IV 10 mg Q8H PRN Administration Blood Pressure Sodium Chloride 1,000 mls @ 100 mls/hr 12/29/18 03:00 12/31/18 22:28 Nacl 0.9% 1000 Ml IV 150 mls/hr DIRECT KAI Administration Insulin Human Lispro 0 unit 12/29/18 07:30 12/31/18 22:20 Humalog SUB-Q 6 unit ACHS KAI Administration Protocol Ondansetron HCl 4 mg 12/29/18 02:06 Zofran IV Q8H PRN Nausea And Vomiting Oxycodone/Acetaminophen 1 tab 12/29/18 02:06 Percocet 5/325 PO Q6H PRN Pain, Moderate (4-6) Sodium Chloride 10 ml 12/29/18 10:00 12/31/18 22:17 Sodium Chloride Flush Syringe 10 Ml IV 10 ml BID KAI Administration Sodium Chloride 10 ml 12/29/18 02:06 Sodium Chloride Flush Syringe 10 Ml IV PRN PRN LINE FLUSH Zolpidem Tartrate 5 mg 12/29/18 02:06 Ambien PO QHS PRN Insomnia
[2019-01-01 10:27] LABS: Basophils % (Auto) 0.3 % (0.0-1.8); Eosinophils # (Auto) 0.1 K/mm3 (0.0-0.4); Eosinophils % (Auto) 1.1 % (0.0-4.3); Hematocrit 28.5 % (35.5-45.6); Hemoglobin 9.4 gm/dl (11.8-15.2); Lymphocytes # (Auto) 1.3 K/mm3 (1.2-5.4); Lymphocytes % (Auto) 21.5 % (13.4-35.0); Mean Corpuscular HGB Conc 33 % (32-34); Mean Corpuscular Volume 84 fl (84-94); Monocytes # (Auto) 0.4 K/mm3 (0.0-0.8); Monocytes % (Auto) 6.7 % (0.0-7.3); Platelet Count 354 K/mm3 (140-440); Red Blood Count 3.37 M/mm3 (3.65-5.03); Red Cell Distribution Width 13.2 % (13.2-15.2)
[2019-01-01 10:47] LABS: Calcium 8.4 mg/dL (8.4-10.2)
[2019-01-01] MEDS: SODIUM CHLORIDE FLUSH SYRINGE 10 ML IV SCH (11:17)
[2019-01-01 13:37] VITALS: BP 164/99
--- NOTE | 2019-01-01 14:56 | Discharge Summary ---
Providers - Providers Date of Admission: 12/29/18 02:06 Date of discharge: 01/01/19 Attending physician: YESSENIA MILLER 12/29/18 08:32 Consult to Physician [CONS] Routine Comment: Consulting Provider: ASHELY RAIN Physician Instructions: Reason For Exam: GORAN/CKD [facility] Condition: Stable Pertinent studies: CT Abdomen--IMPRESSION: There is no acute intra-abdominal abnormality CXR -- IMPRESSION: Normal examination Hospital course: Acute renal failure -Probably diabetic nephropathy -On IV fluid, will monitor creatinine level -CT abdomen/pelvis negative for acute findings -Nephrology consult appreciated IV fluids for now Creatinine improved from 4.1-2.4 D/w Nephrology They will f/u as outpatient DM1 with hypoglycemia On hypoglycemic protocol UTI Change to po abx Leukocytosis Urinalysis positive for 16 WBCs DVT prophylaxis with SCD Disposition: TO HOME OR SELFCARE Core Measure Documentation - Palliative Care Palliative Care/ Comfort Measures: Not Applicable - Core Measures Any of the following diagnoses?: none Exam - Constitutional Vitals: Temp Pulse Resp BP Pulse Ox 97.9 F 83 20 164/99 99 01/01/19 12:42 01/01/19 12:42 01/01/19 12:42 01/01/19 12:42 01/01/19 12:42 General appearance: Present: no acute distress, well-nourished - EENT Eyes: Present: PERRL ENT: hearing intact, clear oral mucosa - Neck Neck: Present: supple, normal ROM - Respiratory Respiratory effort: normal Respiratory: bilateral: CTA - Cardiovascular Heart rate: 78 Rhythm: regular Heart Sounds: Present: S1 & S2. Absent: rub, click - Extremities Extremities: no ischemia, pulses intact, pulses symmetrical, No edema Peripheral Pulses: within normal limits - Abdominal General gastrointestinal: Present: soft, non-tender, non-distended, normal bowel sounds Male genitourinary: Present: normal - Integumentary Integumentary: Present: clear, warm, dry - Musculoskeletal Musculoskeletal: gait normal, strength equal bilaterally - Psychiatric Psychiatric: appropriate mood/affect, intact judgment & insight - Neurologic Neurologic: CNII-XII intact, moves all extremities - Allied Health Allied health notes reviewed: nursing, case management Plan Activity: no restrictions Diet: low fat, low cholesterol, low salt Follow up with: SURAJ LEDEZMASOUTHSIDE MD AMARI [Primary Care Provider] - 7 Days ASHELY RAIN MD [Staff Physician] - 7 Days
== END 2019-01-01 17:20 | disposition home or self-care (01) | DRG 683 ==
LOC: ED 22:08 → 3A 12-29 02:06
PROVIDERS: ADMIT Internal Medicine; ATTEND Internal Medicine
DX: N17.9 Acute kidney failure, unspecified (principal); N39.0 Urinary tract infection, site not specified; E87.1 Hypo-osmolality and hyponatremia; E10.649 Type 1 diabetes mellitus with hypoglycemia without coma; D72.829 Elevated white blood cell count, unspecified; E10.21 Type 1 diabetes mellitus with diabetic nephropathy; Z79.4 Long term (current) use of insulin; Z83.3 Family history of diabetes mellitus; Z88.2 Allergy status to sulfonamides; Z79.899 Other long term (current) drug therapy
CPT/HCPCS: 36415; 71046; 74176; 80048; 80053; 81001; 82140; 82570; 82962; 83036; 84100; 84156; 84300; 85025; 87040; 87076; 87086; 87186; 93005; 93010; 96374; 99285; 99406; G0378; J0360; J1815; J2405; J7030

== ENCOUNTER 2019-01-06 12:55 | Emergency (ER) | payer OTHER ==
[2019-01-06 13:22] VITALS: BP 167/93
--- NOTE | 2019-01-06 13:23 | Event Note ---
ED Screening Note ED Screening Note: pt states that he got a call saying to come to the emergency room for a +blood culture had one positive culture, with staph aureus, other culture was negative was admitted last week no fever no cough no urinary sx no wounds/no abscess no recent illness after being discharge pt is asymptomatic PMHx Dm on insulin, HTN allergy to sulfa states he is supposed to see nephrology on 01/12 non smoker non drinker no drug use This initial assessment/diagnostic orders/clinical plan/treatment(s) is/are subject to change based on patients health status, clinical progression and re- assessment by fellow clinical providers in the ED. Further treatment and workup at subsequent clinical providers discretion. Patient/guardian urged not to elope from the ED as their condition may be serious if not clinically assessed and managed.
--- NOTE | 2019-01-06 13:30 | Emergency Department Report ---
- HPI History of Present Illness: pt states that he got a call saying to come to the emergency room for a +blood culture had one positive culture, with staph aureus, other culture was negative was admitted last week for GORAN and DM no fever no cough no urinary sx no wounds/no abscess no recent illness after being discharge pt is asymptomatic PMHx Dm on insulin, HTN allergy to sulfa states he is supposed to see nephrology on 01/12 non smoker non drinker no drug use he states he was not having any symptoms and just came to the emergency room because he received the call. pt has normal vitals except for mildly elevated BP. he is in no acute distress, no signs of infection. discussed with pt that because it was only present in one bottle and is found in the skin eve it was most likely a contaminant. pt states he has upcoming appts with nephrology and endocrinology. also discussed to follow up with PCP for better BP control. discussed with pt to return to the ED immediately for any new or worsening symptoms or any signs of infection. case discussed with Dr. Tomas Gomez who also stated most likely a contaminant and agreed with discharge home. - Exam Vital Signs: Vital Signs 01/06/19 13:19 Temperature 98.3 F Pulse Rate 89 Respiratory 18 Rate Blood Pressure 167/93 O2 Sat by Pulse 99 Oximetry MSE screening note: Focused history and physical exam performed. <ALEXANDRIA FRIEND - Last Filed: 01/06/19 16:58> - Exam Vital Signs: Vital Signs 01/06/19 13:19 Temperature 98.3 F Pulse Rate 89 Respiratory 18 Rate Blood Pressure 167/93 O2 Sat by Pulse 99 Oximetry MSE screening note: Focused history and physical exam performed. Due to findings the following was ordered: <MARY GOMEZ - Last Filed: 01/10/19 08:27> Chief Complaint: Medical Clearance Stated Complaint: INFECTION IN BLOOD Time Seen by Provider: 01/06/19 13:20 ED Medical Decision Making - Medical Decision Making Patient was a call back secondary to a positive blood culture. Blood culture was contaminated. Patient is asymptomatic at this time is not need any further care. Patient's needs no further treatment is elected to not play the 150s. Patient given community resources. <MARY GOMEZ - Last Filed: 01/10/19 08:27> ED Disposition for MSE Is pt being admited?: No Does the pt Need Aspirin: No Time of Disposition: 13:29 <ALEXANDRIA FRIEND - Last Filed: 01/06/19 16:58> <MARY GOMEZ - Last Filed: 01/10/19 08:27> Clinical Impression: Contamination of blood culture Disposition: MED SCREENING EXAM-LEFT Condition: Stable Additional Instructions: please follow up with your primary care doctor in the next 2-3 days. please keep your appt with your voice over artist (kidney doctor) 01/12. return to the emergency room for any new or worsening symptoms. Referrals: [facility] [Provider Group] - 2-3 Days [facility] [Outside] - 2-3 Days [facility] [Outside] - 2-3 Days Print Language: WOLOF
== END 2019-01-06 17:05 | disposition left against medical advice (07) ==
LOC: ED 12:55
DX: R79.9 Abnormal finding of blood chemistry, unspecified (principal); Z88.2 Allergy status to sulfonamides; E11.9 Type 2 diabetes mellitus without complications; I10 Essential (primary) hypertension; Z79.4 Long term (current) use of insulin
CPT/HCPCS: 99282